=== PATIENT | female | born 1960 | race Caucasian/White ===

== ENCOUNTER 2017-03-01 09:32 | Day surgery (SDC) | payer BC ==
--- NOTE | 2017-03-01 08:35 | PCM.PREANE ---
Preanesthetic Assessment - Procedure Proposed Procedure: Subfascial mid-urethral sling procedure - Anesthesia/Transfusion/Family Hx Anesthesia History: Prior Anesthesia Without Reaction Family History of Anesthesia Reaction: No Transfusion History: No Prior Transfusion(s) - Review of Systems General: No Symptoms Pulmonary: No Symptoms Cardiovascular: Other (HTN, hyperlipidemia) Gastrointestinal: Other (GERD) Neurological: Dizziness (Meniere's disease), Other (Joint pain) Other: Reports: None (Breast CA, melanoma), Diabetes (Pre-diabetes, been on metformin for ~1 year), Thyroid Problems (Hypothyroidism), Depression, Anxiety - Physical Assessment NPO Status Date: 02/28/17 NPO Status Time: 22:00 Pulse: 73 O2 Sat by Pulse Oximetry: 100 Respiratory Rate: 16 Blood Pressure: 150/69 Temperature: 36.2 C Height: 1.61 m Weight: 77.111 kg ASA Class: 3 Mental Status: Alert & Oriented x3 Airway Class: Mallampati = 1 Dentition: Reports: Normal Dentition Thyro-Mental Finger Breadths: 3 Mouth Opening Finger Breadths: 3 ROM/Head Extension: Full Lungs: Clear to auscultation, Normal respiratory effort Cardiovascular: Regular Rate, Regular Rhythm, No Murmurs - Lab Values: Laboratory Last Values WBC 3.14 K/mm3 (3.98-10.04) L 02/17/17 09:57 RBC 4.16 M/mm3 (3.98-5.22) 02/17/17 09:57 Hgb 12.8 gm/L (11.2-15.7) 02/17/17 09:57 Hct 37.3 % (34.1-44.9) 02/17/17 09:57 MCV 89.7 fl (79.4-94.8) 02/17/17 09:57 MCH 30.8 pg (25.6-32.2) 02/17/17 09:57 MCHC 34.3 g/dl (32.2-35.5) 02/17/17 09:57 RDW Std Deviation 42.8 fL (36.4-46.3) 02/17/17 09:57 Plt Count 229 K/mm3 (182-369) 02/17/17 09:57 MPV 8.8 fl (9.4-12.3) L 02/17/17 09:57 Neut % (Auto) 58.9 % (34.0-71.1) 02/17/17 09:57 Lymph % (Auto) 26.4 % (19.3-51.7) 02/17/17 09:57 Price % (Auto) 10.5 % (4.7-12.5) 02/17/17 09:57 Eos % (Auto) 3.2 (0.7-5.8) 02/17/17 09:57 Baso % (Auto) 1.0 % (0.1-1.2) 02/17/17 09:57 Neut # (Auto) 1.85 K/mm3 (1.56-6.13) 02/17/17 09:57 Lymph # (Auto) 0.83 K/mm3 (1.18-3.74) L 02/17/17 09:57 Price # (Auto) 0.33 K/mm3 (0.24-0.36) 02/17/17 09:57 Eos # (Auto) 0.10 K/mm3 (0.04-0.36) 02/17/17 09:57 Baso # (Auto) 0.03 K/mm3 (0.01-0.08) 02/17/17 09:57 Creatinine 1.2 mg/dL (0.55-1.02) H 02/17/17 09:57 Est Cr Clr Drug Dosing 43.73 mL/min 02/17/17 09:57 Estimated GFR (MDRD) 46 mL/min (>60) 02/17/17 09:57 Urine Color Yellow (Yellow) 02/17/17 09:57 Urine Appearance Clear (Clear) 02/17/17 09:57 Urine pH 6.0 (5.0-8.0) 02/17/17 09:57 Ur Specific Simpson > or = 1.030 (1.005-1.030) 02/17/17 09:57 Urine Protein Negative (Negative) 02/17/17 09:57 Urine Glucose (UA) Negative (Negative) 02/17/17 09:57 Urine Ketones Negative (Negative) 02/17/17 09:57 Urine Occult Blood Trace-intact (Negative) H 02/17/17 09:57 Urine Nitrite Negative (Negative) 02/17/17 09:57 Urine Bilirubin Negative (Negative) 02/17/17 09:57 Urine Urobilinogen 0.2 (0.2-1.0) 02/17/17 09:57 Ur Leukocyte Esterase 1+ (Negative) H 02/17/17 09:57 Labs reviewed and ok to proceed with planned procedure - Allergies Allergies/Adverse Reactions: Allergies Allergy/AdvReac Type Severity Reaction Status Date / Time morphine Allergy Rash Verified 02/28/17 15:27 - Blood Blood Available: No Product(s) Available: None - Anesthesia Plan Pre-Op Medication Ordered: None - Acknowledgements Anesthesia Type Planned: General Anesthesia Pt an Appropriate Candidate for the Planned Anesthesia: Yes Alternatives and Risks of Anesthesia Discussed w Pt/Guardian: Yes Pt/Guardian Understands and Agrees with Anesthesia Plan: Yes PreAnesthesia Questionnaire HEENT History: Reports: Other (See Below) Other HEENT History: Meniere's disease Cardiovascular History: Reports: High Cholesterol, Hypertension Respiratory History: Reports: None Gastrointestinal History: Reports: GERD Genitourinary History: Reports: Urinary Incontinence, Other (See Below) Other Genitourinary History: overactive bladder, stress urinary incontinence 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: Other OB/BYN History: atrophic vaginitis, Musculoskeletal History: Reports: Other (See Below) Other Musculoskeletal History: joint pain Neurological History: Reports: Other (See Below) Other Neuro History: meniere disease Psychiatric History: Reports: Anxiety, Depression Endocrine/Metabolic History: Reports: Hypothyroidism, Other (See Below) Other Endocrine/Metabolic History: pre diabetes Hematologic History: Reports: None Immunologic History: Reports: None Oncologic (Cancer) History: Reports: Breast, Malignant Melanoma, Other (See Below) Other Oncologic History: melanoma on left great toe Dermatologic History: Reports: Melanoma - Past Surgical History Head Surgeries/Procedures: Reports: None HEENT Surgical History: Reports: Naso-Sinus Surgery, Tonsillectomy GI Surgical History: Reports: Cholecystectomy, Colonoscopy, EGD Female Surgical History: Reports: Hysterectomy Oncologic Surgical History: Reports: Lumpectomy - SUBSTANCE USE Smoking Status *Q: Never Smoker Second Hand Smoke Exposure: No Days Per Week of Alcohol Use: 0 Number of Drinks Per Day: 0 Total Drinks Per Week: 0 Recreational Drug Use History: No - HOME MEDS Home Medications: Home Meds Fenofibrate Nanocrystallized [Tricor] 145 mg PO DAILY 03/15/16 [History] Triamterene/Hydrochlorothiazid [Dyazide 37.5-25] 1 cap PO DAILY 03/15/16 [ History] Anastrozole [Anastrozole] 1 mg PO DAILY 02/28/17 [History] DULoxetine [Cymbalta] 60 mg PO DAILY 02/28/17 [History] Estradiol [Vagifem] 10 mcg VAG BEDTIME 02/28/17 [History] Hydrocodone/Acetaminophen [Hydrocodon-Acetaminophen 5-325] 1 tab PO Q4HR PRN 02/09 [History] Levothyroxine 175 mcg PO DAILY 02/28/17 [History] Mirabegron [Myrbetriq] 25 mg PO DAILY 02/28/17 [History] metFORMIN HCl [Metformin HCl] 500 mg PO DAILY 02/28/17 [History] - CURRENT (IN HOUSE) MEDS Current Meds: Current Medications Lactated Ringer's (Ringers, Lactated) 1,000 mls @ 125 mls/hr IV ASDIRECTED ROBERT Lidocaine/Sodium Bicarbonate (Buffered Lidocaine 1% In Ns 8.4%) 0.25 ml IV ONETIME PRN PRN Reason: Prior to IV Start Sodium Chloride (Saline Flush) 10 ml FLUSH ASDIRECTED PRN PRN Reason: Keep Vein Open
[~2017-03-01 09:32] MED LIST: Lactated Ringers 1,000 ML IV SCH; Lidocaine 1% 4 ML ONE; Lidocaine 1%/Sod Bicarbonate in NS 8.4% 1 ML Syringe IV PRN; Midazolam 1 MG/ML 2 ML SDV ONE; Propofol 200 MG/20 ML SDV ONE; Rocuronium 50 MG/5 ML Vial ONE; Sodium Chloride 0.9% 10 ML Syringe FLUSH PRN; ceFAZolin 1 GM Vial ONE; fentaNYL 250 MCG/5 ML SDV ONE
[2017-03-01] MEDS ORDERED: Sodium Chloride 0.9% 50 ML SDV ONE (10:01)
[2017-03-01] MEDS ORDERED: Lidocaine 1% with EPINEPHrine 1:100,000 20 ML MDV ONE (10:01)
[2017-03-01] MEDS ORDERED: Ondansetron 4 MG/2 ML SDV ONE (11:54)
[2017-03-01] MEDS ORDERED: Dexamethasone 4 MG/ML 5 ML MDV ONE (11:54)
[2017-03-01] MEDS ORDERED: Ketorolac 30 MG/ML SDV ONE (11:56)
[2017-03-01] MEDS ORDERED: ePHEDrine/Normal Saline 25 MG/5 ML Syringe ONE (12:11)
[2017-03-01] MEDS ORDERED: Neostigmine Methylsulfate 1 MG/ML 5 ML Syringe ONE (12:13)
[2017-03-01] MEDS ORDERED: Ondansetron 4 MG/2 ML SDV IVPUSH PRN ×2 (12:21→12:41)
[2017-03-01] MEDS ORDERED: diphenhydrAMINE 50 MG/ML SDV IVPUSH PRN (12:21)
[2017-03-01] MEDS ORDERED: fentaNYL 100 MCG/2 ML SDV IVPUSH PRN (12:21)
[2017-03-01] MEDS ORDERED: Meperidine PF 50 MG/ML Syringe IVPUSH PRN (12:21)
--- NOTE | 2017-03-01 12:28 | PCM.POSTAN ---
POST ANESTHESIA ASSESSMENT - MENTAL STATUS Mental Status: alert, oriented - VITAL SIGNS Pulse Rate: 89 SaO2: 98 Resp Rate: 15 Blood Pressure: 150/62 Temperature: 36.7 C - RESPIRATORY Respiratory Status: respiratory rate WNL, airway patent, O2 saturation stable, supplemental oxygen - CARDIOVASCULAR CV Status: pulse rate WNL, blood pressure stable - GASTROINTESTINAL GI Status: no symptoms - PAIN Pain Score: 0 - POST OP HYDRATION Hydration Status: adequate & stable
--- NOTE | 2017-03-01 12:50 | PCM.OPNOTE ---
- General Post-Op/Procedure Note Date of Surgery/Procedure: 03/01/17 Operative Procedure(s): Subfascial midurethral sling Findings: Mild cystocele. Pre Op Diagnosis: Stress Urinary Incontinence Post-Op Diagnosis: Same Anesthesia Technique: General ET tube Primary Surgeon: Ameya Kothari Anesthesia Provider: Lashay Anderson Fluid Replacement, Intraop: 1,000 EBL in mLs: 10 Complications: None Condition: Good Free Text/Narrative:: Duration: 15 minutes Procedure: The patient was taken the operating room and placed in supine position on the operating table. She was adequately consented for the procedure. She was given 2 g of Ancef preoperatively for infection prophylaxis and had sequential compression stockings in place for DVT prophylaxis. She had voided chip person to the operating room. She was given general endotracheal anesthesia. She was placed in the dorsal lithotomy position. Her bladder was again drained with a red rubber catheter. A normal urine was removed. The epithelium overlying the urethra was grasped approximately 1 cm from the urethral meatus and approximately 2 cm cephalad from there with Allis clamps. The area of the skin overlying the medial aspect of the obturator foramen on each side just posterior to the origin the abductor longus musclewas marked with a marking pen. These 2 areas and the sub-fascial layer of the vaginal were then infiltrated with lidocaine quarter percent with epinephrinetotal of approximately 10 mL was used. incisions made in the epithelium overlying the urethra and 2 small stab wounds 3 mm in length were made in the 2 areas of the panty line of the patient. The subfascial planes and adequately dissected bilaterally to allow placement of the mesh. The helical adapter was then placed through the obturator on patient's left side brought out through the vaginal subfascial plane. Mesh was attached to it and then was pulled back through the obturator foramen. Same was done on the right side. Mesh was then snugged up to the urethra. Dilator 15 mm in diameter was used as a spacer to place the mesh in a tension-free position. At this point the mesh was cut off at the skin surface and the dilator was removed. The midline epithelium was closed with a short running suture of 3-0 Monocryl. Skin incisions were closed with Dermabond skin glue. These bladder was filled with approximately 20/40 cc of normal saline to facilitate voiding and therefore discharged home. The patient was returned to supine position, awakened from general endotracheal anesthesia and was discharged from operating room in good
[2017-03-01] MEDS ORDERED: HYDROmorphone 0.5 MG/0.5 ML Syringe IVPUSH PRN (13:00)
[2017-03-01 13:20] VITALS: BP 135/82
== END 2017-03-01 14:21 | disposition home or self-care (01) ==
LOC: JD.SDS 09:32
PROVIDERS: ATTEND Obstetrics & Gynecology
DX: N39.3 Stress incontinence (female) (male) (principal); N81.10 Cystocele, unspecified; F41.9 Anxiety disorder, unspecified; F32.9 Major depressive disorder, single episode, unspecified; K21.9 Gastro-esophageal reflux disease without esophagitis; E78.00 Pure hypercholesterolemia, unspecified; I10 Essential (primary) hypertension; E03.9 Hypothyroidism, unspecified; M25.50 Pain in unspecified joint; N32.81 Overactive bladder; Z88.5 Allergy status to narcotic agent; Z79.899 Other long term (current) drug therapy; Z79.84 Long term (current) use of oral hypoglycemic drugs; Z85.3 Personal history of malignant neoplasm of breast; Z90.710 Acquired absence of both cervix and uterus; Z98.890 Other specified postprocedural states
CPT/HCPCS: 36415; 57288; 81003; 82565; 82962; 85025; J0690; J1100; J1885; J2250; J2405; J2710; J3010; J7050; J7120; 00860; C1771; J2704